=== PATIENT | male | born 1985 | race Caucasian/White ===

== ENCOUNTER 2021-06-08 09:34 | Outpatient (CLI) | payer MEDICAID, SELFPAY ==
[2021-06-08 12:27] LABS: Absolute Lymphocyte Count 2.52 X10^3/uL (0.83-4.51); Absolute Neutrophil Count 7.1 X10^3/uL (2.0-7.7); Basophil# 0.03 X10^3/uL; Basophil% 0.3 % (0-1); Eosinophil# 0.21 X10^3/uL; Eosinophils% 1.9 % (0-5); Hematocrit 51.3 % (40-54); Hemoglobin 17.7 g/dL (13.0-16.5); Lymphocyte # 2.52 X10^3/ul (0.83-4.51); Lymphocyte % 23.4 % (19-41); Mean Corp Hgb Conc 34.5 g/dL (32-36); Mean Corpuscular Hgb 29.9 pg (27.0-32.0); Mean Corpuscular Volume 86.8 fL (80-94); Mean Platelet Vol. 10.2 fl (6.2-12.0); Monocyte# 0.88 X10^3/uL; Monocyte% 8.2 % (0-10); NRBC Flagged by Analyzer 0 % (0-5); Neutrophil # 7.08 X10^3/uL (2.7-7.7); Neutrophil % 65.7 % (47-70); Platelet Count 200 K/mm3 (150-450); RBC Distribution Width CV 13.1 % (11.6-14.6); RBC Distribution Width SD 41.6 fl (35.1-43.9); Red Blood Count 5.91 M/mm3 (4.6-6.2); White Blood Count 10.8 K/mm3 (4.4-11.0)
[2021-06-08 12:44] LABS: Vitamin D,25 Hydroxy 26.4 ng/mL
[2021-06-08 12:51] LABS: AST(SGOT) 25 U/L (15-37); Alanine Aminotransfer ALT/SGPT 96 U/L (16-61); Albumin, Serum 3.8 g/dL (3.2-5.0); Alkaline Phosphatase 99 U/L (45-117); Anion Gap 6 (5-15); BUN 14 mg/dL (7-18); BUN/Creat Ratio 12.7 RATIO (10-20); Calcium,Total 9.3 mg/dL (8.5-10.1); Chloride 108 mmol/L (98-107); EST Glomerular Filtration Rate 81 mL/min (>60); Est Glom Filt Rate - Afr Amer 98 mL/min (>60); Globulin 3.7 g/dL (2.2-4.2); Glucose 105 mg/dL (74-106); Protein, Total 7.5 g/dL (6.4-8.2); Sodium Level 139 mmol/L (136-145)
[2021-06-08 12:52] LABS: Cholesterol 164 mg/dL (200); Estradiol 43.3 pg/mL; High Density Lipoprotein 35 mg/dL; PSA,Total - Annual Screen 0.45 ng/mL (0.00-4.00); Thyroid Stim Hormone (TSH) 1.86 uIU/mL (0.358-3.74); Triglycerides 115 mg/dL; Very Low Density Lipoprotein 23 mg/dL (5-40)
== END 2021-06-08 23:59 | disposition short-term general hospital (02) ==
LOC: BIMLAB 09:35
PROVIDERS: Referring Provider Internal Medicine Endocrinology, Diabetes & Metabolism; Visit Provider Internal Medicine Endocrinology, Diabetes & Metabolism
DX: I10 Essential (primary) hypertension (principal); E78.00 Pure hypercholesterolemia, unspecified; E55.9 Vitamin D deficiency, unspecified
CPT/HCPCS: 84153; 36415; 80053; 80061; 82306; 82670; 84402; 84403; 84443; 85025; G0103

== ENCOUNTER 2021-07-09 13:07 | Outpatient (CLI) | payer MEDICAID, SELFPAY ==
[2021-07-09 15:23] LABS: Hematocrit 51.2 % (40-54); Hemoglobin 17.4 g/dL (13.0-16.5)
[2021-07-13 12:09] LABS: Testosterone, Free 13.01 ng/dL (5.00-21.00)
[2021-07-13 14:05] LABS: Testosterone, % Free 3.31 % (1.50-4.20); Testosterone, Total 393 ng/dL (264-916)
== END 2021-07-09 23:59 | disposition home or self-care (01) ==
LOC: BIMLAB 13:08
PROVIDERS: Visit Provider Internal Medicine Endocrinology, Diabetes & Metabolism
DX: D75.1 Secondary polycythemia (principal)
CPT/HCPCS: 36415; 84402; 84403; 85014; 85018

== ENCOUNTER 2021-08-22 11:51 | Outpatient (CLI) | payer MEDICAID, SELFPAY ==
[2021-08-22 14:54] LABS: Absolute Neutrophil Count 6.3 X10^3/uL (2.0-7.7); Basophil# 0.04 X10^3/uL; Basophil% 0.4 % (0-1); Eosinophil# 0.07 X10^3/uL; Eosinophils% 0.7 % (0-5); Hematocrit 51.6 % (40-54); Hemoglobin 17.8 g/dL (13.0-16.5); Lymphocyte % 28.3 % (19-41); Mean Corp Hgb Conc 34.5 g/dL (32-36); Mean Platelet Vol. 10.4 fl (6.2-12.0); Monocyte# 0.87 X10^3/uL; Monocyte% 8.5 % (0-10); NRBC Flagged by Analyzer 0 % (0-5); Neutrophil # 6.31 X10^3/uL (2.7-7.7); Neutrophil % 61.7 % (47-70); Platelet Count 249 K/mm3 (150-450); RBC Distribution Width CV 13.2 % (11.6-14.6); RBC Distribution Width SD 41.7 fl (35.1-43.9); Red Blood Count 5.93 M/mm3 (4.6-6.2); White Blood Count 10.2 K/mm3 (4.4-11.0)
== END 2021-08-22 23:59 | disposition home or self-care (01) ==
LOC: BIMLAB 11:55
PROVIDERS: Referring Provider Internal Medicine Endocrinology, Diabetes & Metabolism; Visit Provider Internal Medicine Endocrinology, Diabetes & Metabolism
DX: D75.1 Secondary polycythemia (principal)
CPT/HCPCS: 36415; 85025

== ENCOUNTER → 2021-10-08 | Outpatient (CLI) | payer OTHER, MEDICAID, SELFPAY ==
[2021-10-08 12:43] LABS: Absolute Lymphocyte Count 3.45 X10^3/uL (0.83-4.51); Absolute Neutrophil Count 4.7 X10^3/uL (2.0-7.7); Basophil# 0.04 X10^3/uL; Basophil% 0.4 % (0-1); Eosinophil# 0.11 X10^3/uL; Eosinophils% 1.2 % (0-5); Hematocrit 43.9 % (40-54); Hemoglobin 15.3 g/dL (13.0-16.5); Lymphocyte # 3.45 X10^3/ul (0.83-4.51); Lymphocyte % 38.6 % (19-41); Mean Corp Hgb Conc 34.9 g/dL (32-36); Mean Corpuscular Hgb 30.7 pg (27.0-32.0); Mean Corpuscular Volume 88.2 fL (80-94); Mean Platelet Vol. 10.3 fl (6.2-12.0); Monocyte# 0.64 X10^3/uL; Monocyte% 7.2 % (0-10); NRBC Flagged by Analyzer 0 % (0-5); Neutrophil # 4.65 X10^3/uL (2.7-7.7); Neutrophil % 52.2 % (47-70); Platelet Count 215 K/mm3 (150-450); RBC Distribution Width CV 12.8 % (11.6-14.6); RBC Distribution Width SD 41.5 fl (35.1-43.9); Red Blood Count 4.98 M/mm3 (4.6-6.2); White Blood Count 8.9 K/mm3 (4.4-11.0)
== END | disposition home or self-care (01) ==
LOC: BIMLAB 09:09
PROVIDERS: PCP Family Medicine; Referring Provider Nurse Practitioner Family; Visit Provider Nurse Practitioner Family
DX: D75.1 Secondary polycythemia (principal)
CPT/HCPCS: 36415; 85025